=== PATIENT | male | born 1990 | race Caucasian/White ===

== ENCOUNTER 2024-06-21 09:41 | Inpatient (IN) | payer OTHER, SELFPAY ==
[2024-06-21] VITALS (28 sets, daily range): BP systolic 131–190; BP diastolic 70–144; PULSE 160; BMI 23.4
--- NOTE | 2024-06-21 06:17 | ED.GENMED ---
History of Present Illness
General
Chief Complaint: Withdrawal Symptoms
Source: patient, ambulance crew and other (Correction guards)
Exam Limitations: none
Time Seen by Provider: 06/21/24 06:06
Nursing documentation reviewed up to this point in time: agreed with
History of Present Illness
History of Present Illness:
34-year-old male presents emergency department due to fentanyl, xylazine withdrawal. He last used 2 days ago. He was given Subutex at the custodial,
Past History
Past History
ED Past Medical History: Other (IV drug abuse)
Social History
Drug: Narcotics and IVDA
Living: custodial (Recent arrival to [facility])
Family History
Family History: Unable to obtain
Review of Systems
Review of Systems
Allergies reviewed?: Yes
All Other Systems: Not applicable
ABD/GI: Reports vomiting
Phy Exam
Physical Exam
Physical Exam:
Physical Exam
General: Covered in vomit, appears uncomfortable, in handcuffs
Neck: supple. no meningeal signs. normal posterior pharynx
Heart: s1/s2 regular rate and rhythm, no murmur. equal radial
pulses.
HEENT: Pupils equal round reactive to light, EOMI
Lungs: no acute respiratory distress. clear bilaterally
Abdomen: normal bowel sounds. not tender. no CVAT
Neuro: alert and oriented. no focal neurological deficits cranial nerves II through XII intact
Skin: no rash
Psychiatric: well kept. interactive and cooperative
Extremities: no edema. no calf tenderness. negative homans. good distal pulses
Course
Orders/Labs/Results
Orders:
Orders
06/21/24 05:34
EKG [Electrocardiogram (*1)] Urgent
Reason for Study: Abnormal EKG
06/21/24 05:35
EKG- Treatment ONCE
06/21/24 Breakfast
Regular
06/21/24 06:14
0.9% Sodium Chloride 1000 ml [Nss] 1,000 ml IV BOLUS
Buprenorphine [Subutex] 16 mg SL STAT STA
Ondansetron Injectable [Zofran] 4 mg IV NOW STA
Tizanidine [Zanaflex] 4 mg PO NOW STA
06/21/24 06:15
IV Insert/Care/Rem.- Treatment PRN
06/21/24 06:20
Complete Blood Count/With Diff Urgent
Comprehensive Metabolic Panel Urgent
06/21/24 06:32
Lorazepam [Ativan] 1 mg IV NOW STA
06/21/24 07:01
Lorazepam [Ativan] 1 mg IV NOW STA
Metoclopramide [Reglan] 10 mg IV NOW STA
06/21/24 08:30
Lorazepam [Ativan] 1 mg IV NOW STA
06/21/24 09:03
Drug Screen, Urine [Urine Drug Abuse Screen] Routine
06/21/24 09:07
Piperacillin/Tazo 3.375 Gram [Zosyn] 3.375 gram in 50 ml IV NOW
06/21/24 09:17
Admit/Transfer Patient As Directed
Co-Sign Provider:
Level of Care: Inpatient admission
Assign to:: IMU- Intermediate Care
Physician / Group: Boston Irving
Diagnosis: Withdrawal and likely Sepsis
Reason for Hospitalization: Withdrawal and likely Sepsis
Expected length of stay greater than two midnights?: Yes
ELOS- Estimated Length of Stay in days: 4
I certify the patient meets the requirements for IP care: Yes
PRN Pain Medication Management As Directed
May give lesser potent ordered pain med per pt: Yes
preference::
Protocol:: Medication orders for pain may be administered in a
manner that supports deferring to patient preference
when the pt is:
- Requesting an ordered lesser potent pain medication.
Least to most potent pain medications are defined
as: acetaminophen < NSAID < tramadol < opioids
(morphine, oxycodone, hydromorphone).
- Requesting a lesser dose of the same medication IF
ORDERED.
- Requesting a less intrusive route of administration
if both routes are prescribed by the provider (PO <
IV).
06/21/24 09:19
Code Status As Directed
Resuscitation Status: Full Code
06/21/24 09:25
DIETARY CONSULT Routine
Reason for Consult: Nutrition support, possible refeeding guidelines
0.9% Sodium Chloride [Nss (Preservative Free)] See Protocol IV PRN PRN
FOLic ACID [Folvite] 1 mg 0.9% Sodium Chloride 50 ml [Nss] 50 ml IV DAILYPRN
Lorazepam [Ativan] 1 mg IV Q1HPRN PRN
Lorazepam [Ativan] 1 mg PO Q2HPRN PRN
Lorazepam [Ativan] 2 mg IV Q1HPRN PRN
MSAS SCORE As Directed
MSAS Score 0-4: Repeat MSAS every 2 hours until 0-4 for three consecutive assessments, then every 4 hours x 48
hours.
MSAS Score 5-7: For MILD withdrawl symptoms. Repeat MSAS and RASS every 2 hours
MSAS Score 8-11: For MODERATE withdrawal symptoms. Repeat MSAS and RASS every 1 hour. Consider ICU or IMU
level of care.
MSAS Score > 11: For SEVERE withdrawal symptoms. Repeat MSAS and RASS every 1 hour. Notify provider, consider
ICU level of care.
MSAS Additional Instructions: If no improvement or no decrease in score from severe to moderate within 12
hours, consult psychiatry
MSAS Notify Provider: Notify provider if patient requires more than 10 mg of Lorazepam in eight hour period.
MSAS SCORE As Directed
MSAS Score 0-4: Repeat MSAS every 2 hours until 0-4 for three consecutive assessments, then every 4 hours x 48
hours.
MSAS Score 5-7: For MILD withdrawl symptoms. Repeat MSAS and RASS every 2 hours
MSAS Score 8-11: For MODERATE withdrawal symptoms. Repeat MSAS and RASS every 1 hour. Consider ICU or IMU
level of care.
MSAS Score > 11: For SEVERE withdrawal symptoms. Repeat MSAS and RASS every 1 hour. Notify provider, consider
ICU level of care.
MSAS Additional Instructions: If no improvement or no decrease in score from severe to moderate within 12
hours, consult psychiatry
MSAS Notify Provider: Notify provider if patient requires more than 10 mg of Lorazepam in eight hour period.
06/21/24 09:26
Clinical Opioid Withdrawal Scale (COWS) .PRN
06/21/24 09:27
Buprenorphine [Subutex] 4 mg SL Q4HPRN PRN
Prochlorperazine [Compazine] 10 mg IV Q6HPRN PRN
Tizanidine [Zanaflex] 2 mg PO Q6HPRN PRN
06/21/24 09:37
Blood Culture Routine
ZABRINA Source: Blood/Venous
Specimen Description:
06/21/24 09:39
Urinalysis Reflex To Culture Routine
06/21/24 09:51
Phenobarbital Sodium [Phenobarbital] 260 mg 0.9% Sodium Chloride 100 ml [Nss] 100 ml IV NOW
06/21/24 10:29
Acetaminophen [Tylenol] 650 mg PO Q4HPRN PRN
Bisacodyl [Dulcolax] 10 mg RECTAL [id number] PRN
Docusate W/Senna [Senokot-S] 1 tablet PO BIDPRN PRN
Ketorolac [Toradol] 10 mg IV Q6HPRN PRN
Lactated Ringers [Lr] 1,000 ml IV 100 mls/hr
Pantoprazole [Protonix IV] 40 mg IV BID
Polyethylene Glycol Powder [Miralax] 17 grams PO DAILYPRN PRN
06/21/24 10:29
Activity As Directed
Activity Level: With Assistance
Precautions As Directed
Type of Precautions: Aspiration
Seizure
Other
Comment: Fall precautions
Vital Signs As Directed
Frequency: Per unit guidelines
DX Deep Vein Thrombosis Video Routine
06/21/24 11:00
Lactic Acid Routine
06/21/24 12:00
Clonidine [Catapres] 0.1 mg PO Q6
06/21/24 12:13
Blood Culture Urgent
ZABRINA Source: Blood/Venous
Specimen Description:
06/21/24 16:00
Phenobarbital Sodium [Phenobarbital] 97.5 mg IV TID
06/21/24 18:00
Enoxaparin Sodium [Lovenox] 40 mg SC QPM
06/21/24 20:00
Buprenorphine [Subutex] 16 mg SL BID
Thiamine Injection 200 mg IV Q12
06/22/24 06:00
Basic Metabolic Panel IN AM
Complete Blood Count/No Diff IN AM
Creatine Phosphokinase IN AM
Magnesium IN AM
Prothrombin Time IN AM
06/22/24 08:00
FOLic ACID [Folvite] 1 mg PO DAILY
06/23/24 06:00
Basic Metabolic Panel IN AM
Complete Blood Count/No Diff IN AM
Magnesium IN AM
06/23/24 16:00
Phenobarbital [Luminal] 64.8 mg PO TID
06/24/24 06:00
Basic Metabolic Panel IN AM
Complete Blood Count/No Diff IN AM
Magnesium IN AM
06/24/24 20:00
Thiamine HCl [Vitamin B1] 100 mg PO BID
06/25/24 06:00
Basic Metabolic Panel IN AM
Complete Blood Count/No Diff IN AM
Magnesium IN AM
06/25/24 16:00
Phenobarbital [Luminal] 32.4 mg PO TID
06/26/24 06:00
Basic Metabolic Panel IN AM
Complete Blood Count/No Diff IN AM
Magnesium IN AM
06/27/24 06:00
Basic Metabolic Panel IN AM
Complete Blood Count/No Diff IN AM
Magnesium IN AM
06/28/24 06:00
Basic Metabolic Panel IN AM
Complete Blood Count/No Diff IN AM
Magnesium IN AM
Abnormal Lab Results
06/21/24
06:20
WBC 19.5 H 10^3/uL
(4.8-10.8)
Plt Count 671 H 10^3/uL
(130-400)
Abs Immat Gran (auto) 0.1 H 10^3/uL
(0-0.05)
Absolute Neuts (auto) 17.9 H 10^3/uL
(1.4-6.5)
Absolute Lymphs (auto) 0.9 L 10^3/uL
(1.2-3.4)
Immature Gran % 0.6 H %
(0-0.5)
Neutrophils % 91.7 H %
(42.2-75.2)
Lymphocytes % 4.6 L %
(20.5-51.1)
Sodium 149 H mmol/L
(135-145)
Creatinine 0.6 L mg/dL
(0.7-1.3)
Glucose 187 H mg/dl
(70-99)
Calcium 11.1 H mg/dl
(8.4-10.2)
Total Protein 8.9 H g/dl
(6.3-8.2)
06/21/24 06:20
06/21/24 06:20
Vital Signs
Initial and Last Documented VS:
Initial Vital Signs
Temp Pulse Resp BP Pulse Ox
99 F 104 26 188/98 96
06/21/24 05:27 06/21/24 05:27 06/21/24 05:27 06/21/24 05:27 06/21/24 05:27
Last Documented Vital Signs
Temp Pulse Resp BP Pulse Ox
99 F 110 44 163/104 98
06/21/24 05:27 06/21/24 13:45 06/21/24 13:45 06/21/24 13:30 06/21/24 13:45
MDM/Problems Addressed
Differential Diagnosis Includes:
Ativan, fentanyl, xylazine withdrawal
MDM/Problems Addressed:
34-year-old male with vomiting, withdrawal from multiple substances. Admit to IMU. Multiple dose of Ativan, tizanidine given. Patient to Subutex.
*Pulse Oximetry
Patient hypoxic: no
*EKG
Interpreted by ED Provider?: Yes
EKG Intrepretation Date: 06/21/24
EKG Intrepretation Time: 05:42
Interpretation: normal
Comparison EKG: no changes
Heart Rate: 75
Rate: normal
Rhythm: sinus
[place]: normal axis
Interval: normal interval
QRS Pattern: normal QRS
Ischemia: no ischemia
*Food Critic Interpretation
Rate: normal
Interpretation: normal
Heart Rate: 76
Rhythm: sinus
*Critical Care Note
Total Time (30-74mins, 75-104mins- exclusive of procedures): 30
comment:
Critical care statement: A total of 30 minutes of critical care time was provided for this patient. This includes management of unstable vital signs, evaluation of the patient at bedside, reviewing the patient's pertinent medical records, discussion
with consultants, review of old EKGs and review of pertinent medical records. This time with separate from time utilized to perform the aforementioned documented procedures
Data Reviewed
Review of Other/Old Records Reveals: Labs (Prior WBC 12.2 from 05/02/2022)
Patient Management
Social determinants of health affecting care: Living situation
Discussion with other providers: Hospitalist
Escalation/DeEscalation of care consider admission/obs:
Admission indicated
ED Attending Note
-
Portions of this chart may have been created with voice recognition software.� Occasional wrong word or��sound alike� substitutions may have occurred due to the inherent limitations of voice recognition software.
Discharge Plan
Departure
Patient Disposition: Admit
Date of Disposition: 06/21/24
Time of Disposition: :19
Admit to: IMU
Presentation/result/management discussed w/ accepting MD/DO: Hospitalist
Patient with high blood pressure during this ER visit?: Yes
Condition: Fair
Discharge Problem:
Benzodiazepine withdrawal, Xylazine withdrawal, Opiate withdrawal, Acute hypernatremia
Interventions
Interventions:
*Risk Screen - Suicide Last Done: 06/21/24 05:27
*General Assessment Last Done: 06/21/24 05:27
*Neglect/Abuse Screening Last Done: 06/21/24 05:27
ED- Fall Risk Assessment Last Done: 06/21/24 10:43
*ED COVID-19 Vaccine History Last Done: 06/21/24 05:27
*Nursing Disposition Last Done: 06/21/24 10:43
ED- Neurological Assessment Last Done: 06/21/24 05:39
ED-Psychological Assessment Last Done: 06/21/24 05:39
Discharge Date and Time
Discharge Date/Time: 06/21/24 10:35
[2024-06-21] MEDS: NSS 1000 IV (06:23)
[2024-06-21] MEDS: ZOFRAN 4 MG IV (06:24)
[2024-06-21 06:29] LABS: % Basophils 0.2 % (0-2); % Immature Granulocytes 0.6 % (0-0.5); % Lymphocytes 4.6 % (20.5-51.1); % Monocytes 2.9 % (1.7-9.3); % Neutrophils 91.7 % (42.2-75.2); Absolute Immature Granulocytes 0.1 10^3/uL (0-0.05); Absolute Lymphocytes 0.9 10^3/uL (1.2-3.4); Absolute Monocytes 0.6 10^3/uL (0.1-0.6); Absolute Neutrophils 17.9 10^3/uL (1.4-6.5); Hematocrit 40.7 % (39.0-52.0); Hemoglobin 14.1 g/dL (13.0-18.0); Mean Corp Hgb Conc. 34.6 g/dL (33.0-37.0); Mean Corpuscular Hgb 27.9 pg (27.0-31.0); Mean Corpuscular Volume 80.4 fL (80.0-94.0); Mean Platelet Volume 10.3 fL (7.4-10.4); Nucleated Red Blood Cells % 0 % (-); Platelet Count 671 10^3/uL (130-400); Red Blood Cell Count 5.06 10^6/uL (4.70-6.10); Red Cell Dist. Width 12.4 % (11.5-14.5); White Blood Cell Count 19.5 10^3/uL (4.8-10.8)
[2024-06-21] MEDS: ZANAFLEX 4 MG PO (06:30)
[2024-06-21] MEDS: ATIVAN 1 MG IV ×4 (06:35→23:11)
[2024-06-21 06:46] LABS: AST (SGOT) 48 U/L (17-59); Albumin 4.9 g/dl (3.5-5.0); Alkaline Phosphatase 115 U/L (38-126); Blood Urea Nitrogen 13 mg/dl (9-20); Calcium 11.1 mg/dl (8.4-10.2); Carbon Dioxide 26 mmol/L (22-30); Chloride 102 mmol/L (98-107); Estimated Creatinine Clearance > 125 ml/min; Glucose 187 mg/dl (70-99); Potassium 3.8 mmol/L (3.5-5.1); Sodium 149 mmol/L (135-145); Total Bilirubin 0.5 mg/dl (0.2-1.3); Total Protein 8.9 g/dl (6.3-8.2); eGFR > 60.00
[2024-06-21 06:56] LABS: ALT (SGPT) 44 U/L (0-50)
[2024-06-21] MEDS: REGLAN 10 MG IV ×2 (07:05→13:55)
--- NOTE | 2024-06-21 07:24 | HPS.HSE ---
Addendum entered and electronically signed by Boston Irving MD 06/21/24 10:03:
start scheduled Clonidine with holding parameters for withdrawal symptoms
COWs protocol
subutex scheduled and prn
Original Note:
Family Physician
-
Family Physician: Facility [facility]
Chief Complaint
-
Withdrawal
History of Present Illness
34 male from correctional facility presents with withdrawal. History of polysubstance abuse IV drug use. Patient was hospitalized at this facility 2 years ago for overdose requiring intubation. Extubated patient was treated for withdrawal upper
GI bleed pneumonitis sepsis and MRSA bacteremia. Undergoing work up for possible endocarditis, patient was on precedex gtt when he decided to leave AMA overnight after nurse/staff found him smoking and taking his own unspecified pills from home.
Poor historian, patient reports IVDU with fentanyl and xylazine a few days ago, shooting into his left arm and neck. Tremulous, tachy, tachypneic, anxious reports nausea vomiting general malaise and pain. Though afebrile, tachycardia,
leukocytosis, and tachypnea concerning for sepsis especially in lieu of recent IV drug use and history.
Medical History
Past Medical History
Past Medical History: Reports Other (as above)
Past Surgical History: Reports Other (as above)
Social History
Tobacco: Smoker
Alcohol: Other (denies however treated for ETOH withdrawal in past)
Drug: Marijuana, IVDA and Other
Personal:
Living: Long-Term
Family History
Family History: Not pertinent (reviewed)
Allergies / Home Medications
Allergies reflects when Allergies were last updated in [facility].
Home Medications with original date entered in [facility]
Allergy/Medication List:
Allergies
Allergy/AdvReac Type Severity Reaction Status Date / Time
No Known Allergies Allergy Unverified 04/30/22 04:55
Home Medications
buprenorphine 8 mg-naloxone 2 mg sublingual film (Suboxone) 1 film buccal BID 05/02/22
gabapentin 800 mg tablet 800 mg PO TID 05/02/22
Review of Systems
-
A 12 point ROS was completed and negative except as noted: Yes
Constitutional: Reports Other
Physical Exam
Vital Signs
Vital Signs
Temp Pulse Resp BP Pulse Ox
99 F 117 45 188/98 95
06/21/24 05:27 06/21/24 07:00 06/21/24 07:00 06/21/24 05:32 06/21/24 06:00
Physical Exam
General: Other
Laboratory Results
-
06/21/24 06:20
06/21/24 06:20
Laboratory Results
Total Bilirubin 0.5 mg/dl (0.2-1.3) 06/21/24 06:20
AST 48 U/L (17-59) 06/21/24 06:20
ALT 44 U/L (0-50) 06/21/24 06:20
Alkaline Phosphatase 115 U/L (38-126) 06/21/24 06:20
Impression/Plan
-
ROS
General: reports fever chills night sweats
Neuro: Denies seizurloss of consciousness dizziness vertigo reports shaking tremors
Psych: denies depression hallucinations confusion manic episodes
Endocrine: Denies polyuria polydipsia polyphagia heat/cold intolerance
HEENT: Denies blindness visual disturbances epistaxis
Pulmonary: denies coughing hemoptysis sneezing sob dyspnea on exertion
Cardiovascular: denies chest pain palpitations leg swelling
Hematology: denies signs symptoms of anemia easy bruising/bleeding
Gastrointestinal: reports nausea vomiting denies diarrhea constipation hematemesis hematochezia melena
Genito-Urinary: denies retention incontinence dysuria
Musculoskeletal: denies joint pain weakness
Dermatology: Erythema LUE
Physical Exam
General: No pallor, cyanosis, or jaundice.
HEENT: Throat clear. PERRLA Normocephalic atraumatic
NECK: Supple. No JVD Carotid Bruits
RESPIRATORY: Lungs clear to auscultation. No crackles wheezes stridor
CVS: S1, S2 Tachy. No murmur, rub or gallop.
ABDOMEN: Soft, non-tender. No distension. BS+/normal.
EXTREMITIES: No peripheral cyanosis or edema.
CONTRACT ANALYST: awake alert conversant tremulous
Psych: anxious
IMPRESSION:
34 male from correctional facility presents with withdrawal. History of polysubstance abuse IV drug use. Patient was hospitalized at this facility 2 years ago for overdose requiring intubation. Extubated patient was treated for withdrawal upper
GI bleed pneumonitis sepsis and MRSA bacteremia. Undergoing work up for possible endocarditis, patient was on precedex gtt when he decided to leave AMA overnight after nurse/staff found him smoking and taking his own unspecified pills from home.
Poor historian, patient reports IVDU with fentanyl and xylazine a few days ago, shooting into his left arm and neck. Tremulous, tachy, tachypneic, anxious reports nausea vomiting general malaise and pain. Though afebrile, tachycardia,
leukocytosis, and tachypnea concerning for sepsis especially in lieu of recent IV drug use and history.
PLAN:
#Sedative/benzo Withdrawal
#denies ETOH use but treated for alcohol withdrawal in past
#IVDA
#Sepsis tachycardia Leukocytosis (BP stable Lactic acid pending)
#Hx MRSA Bacteremia
IMU admit
Surgical Territory Manager eval
Infectious Disease eval
blood cultures
empiric vanc zosyn
check CXR urinalysis urine drug screen lactic acide
phenobarbital taper
MSAS protocol
#Mild Hypercalcemia/Hypernatremia
likely dehydration
cont IVF support
dvt ppx Lovenox
gi ppx Protonix
Full Code
I spent a total of 80 minutes with the patient or on the floor. More than 50% of this time involved counseling and coordination of care.
[2024-06-21] MEDS: ZOSYN 50 IV ×3 (09:53→22:17)
[2024-06-21] MEDS: PHENOBARBITAL 104 MG IV (10:15)
[2024-06-21] MEDS: LR 1000 IV (10:50)
--- NOTE | 2024-06-21 10:58 | PHA.VAN.IN ---
Assessment
- Assessment
Renal Function: Appears similar to baseline
Historical Micro: History of MRSA infection
- Previous Dosing Experience
Previous Regimen: 1250mg q8h
Date of Regimen: 04/2022
Provided Trough of: 9
Provided AUC of: 327
Patient's SCR is: Similar to previous dosing experience
Patient's weight is: Decreased compared to previous dosing experience (82.7kg (now) vs 98.4kg (04/2022))
AUC Dosing Plan
- Dosing Variables
Dosing Weight (kg): 82.7
Dosing CrCl (ml/min): 100
Vd coefficient (L/kg): 0.7
- Empiric Dosing
Maintenance Regimen: 1000mg q8h
Estimated AUC (mcg*h/mL): 505
Estimated Peak (mcg*h/mL): 29.8
Estimated Trough (mcg/ml): 14
Estimated Half Life (H): 6.4
- Monitoring
No levels ordered at this time: consider after 6th dose
Pharmacokinetics Vancomycin I
- -
Patient Age: 34
Patient Sex: Male
Vancomycin Day #: 1
Indication: Skin And Soft Tissue
Requesting Provider: Dr. Irving
Pertinent Antimicrobial Allergies:
nkda
Height / Weight:
Height 6 ft 2 in
Actual Weight 82.7 kg
IBW in k.2
- Vital Signs / Lab Results
Temp Pulse Resp BP Pulse Ox
99 F 120 49 188/98 95
06/21/24 05:27 06/21/24 08:15 06/21/24 08:15 06/21/24 05:32 06/21/24 06:00
Lab Results - Hematology
06/21/24
06:20
WBC 19.5 H
Lab Results - Chemistry
06/21/24
06:20
BUN 13
Creatinine 0.6 L
Estimated Creat Clear > 125
Albumin 4.9
--- NOTE | 2024-06-21 11:09 | W.PN.UPDATE ---
Update Note
Progress Note Update
Called to IMU patient's bedside d/t high oxygen requirement on NRB saturating only 93% AMS unresponsive
Mental status since improved patient awake conversant reporting nausea
Remains very tachypneic low 90s saturation despite high oxygen and NRB
noted to have been vomiting earlier, likely aspirated
Checking ABG
diet switched to NPO except meds for now
continuing abx (received zosyn in ED so far, empiric Vanc also ordered)
transferring to ICU for closer monitoring concern patient may need intubation
discussed with patient, nurse, and [employer]
--- NOTE | 2024-06-21 11:13 | W.PN.UPDATE ---
Update Note
Progress Note Update
Went to see patient. 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 Poor IVv access due to Hx of IVDU with tranq. He also admits to using Klonopin, he says 3 a day. He
denies EtOH use. Care Home guards are present in room as well. Pt. is answering questions appropriately. Given his severe hypoxia with need for closer monitoring, will TRX to ICU. IV team at bedside to obtain more adequate IV access with midline.
Will give IM ativan in meantime to treat his anxiety/shaking/withdrawal symptoms. May need precedex gtt. Will also place onto high flow nasal cannula, titrating FiO2 and flow rate to keep SpO2 >90-94%. Will give anti-emetics prn, preferably with
reglan to help improve motility as well. Continue aspiration precautions, keep HOB >30-45 degrees. Low threshold to intubate. Full consult note to follow.
--- NOTE | 2024-06-21 11:15 | CON.INTV ---
Addendum entered and electronically signed by Gabo Kennedy MD 06/21/24 19:08:
Pt continues to be hypoxic. Concern for acute PE. He is unfortunately too unstable to bring down for CTPE. Will check echo and LE duplex in interim. Once BP and HR improve his sats improve from 88-90% to 97%, but on HFNC at 100% fio2. Will try
to get CTA chest tomorrow AM. IF sats persistently stay <90% despite controlled HR and BP, then will empirically start heparin gtt.
Original Note:
Consultation
Consultation Request
Date/Time Consultation Requested: 06/21/2024 - 1010
Date/Time Consultation Performed: 06/21/2024 - 1017
Requesting Provider: Dr. Irivng
Performing Provider: Dr. Kennedy
Reason for Consultation: SOB/Polysubstance Abuse with acute withdrawal
Medical History
-
Chief Complaint: Nausea/vomiting + tremors
History of Present Illness:
34-year-old male tobacco smoker with a past medical history of polysubstance abuse (IVDU with tranq, klonopin, THC), history of alcohol abuse with withdrawal, history of Staph aureus bacteremia (04/2022) complicated by endocarditis + septic
arthritis, and history of GI bleed who presents from [facility] with nausea/vomiting + tremors. Last use of IV drugs was 2 days ago. In the ER, patient was afebrile to 99 �F, tachycardic to 104, tachypneic to 26 breaths or minute,
hypertensive to 188/98 and saturating 96% on room air. Labs showed leukocytosis to 19.5, thrombocytosis to 671, hyponatremic to 149, glucose 187, lactate 4.7, + calcium 11.1. Blood cultures were collected, and patient treated in the ER with
Ativan, Zofran, tizanidine + IVF with 1L NS 0.99%. His oxygen requirements worsened and he became very tachypneic requiring up to 8 L/min via mid flow nasal cannula. He was admitted to the IMU under the hospitalist and hand shaker service
consulted given respiratory status. Given his continued tachypnea, tachycardia with possible need for Precedex with low threshold to intubate, he was transferred to the ICU.
Of note, he was previously hospitalized in April 2022 after being found unresponsive at [facility]. He was had bloody/biliary emesis. UDS was positive for cocaine + fentanyl. X-ray showed right-sided pneumonia at that time. He ended up
being intubated and was found to have MRSA bacteremia with ID consulted. TTE showed no evidence of endocarditis. He was extubated and then found to be smoking in his bathroom on 05/02/2022 and taking pills which was unidentified. He was
belligerent and then signed out AMA that night.
When I saw the patient he was awake, answering questions appropriately, tachypneic, tremulous, sweaty, with heart rate labile between 140�180. He was currently on nonrebreather when I saw him. Hypertensive with SBP in the 160�170s. He denies
chest pain, CURRY, abdominal pain,or fevers.
PMHx: IVDU (tranq), polysubstance abuse, tobacco use disorder, history of Staph aureus bacteremia (April 2022), reported history of meningitis, reported history of endocarditis + septic arthritis, chronic cough, history of GI bleed
PSHx: Non-contributory
Past Medical History
Past Medical History: Other (Above as per HPI)
Past Surgical History: Other (Above as per HPI)
Social History
Tobacco: Smoker
Alcohol: Other (Pt denies use but has been Tx for EtOH withdrawal in past)
Drug: Marijuana, IVDA and Other (Klonopin)
Living: Nursing Home
Family History
Family History: Reviewed & Not Pertinent
Allergies / Home Medications
Allergies
Allergy/AdvReac Type Severity Reaction Status Date / Time
No Known Allergies Allergy Unverified 04/30/22 04:55
Home Medications
�Medication �Instructions �Recorded �Confirmed �Last Taken �Type
buprenorphine 8 mg-naloxone 2 mg 1 film buccal BID 05/02/22 05/02/22 Unknown History
sublingual film (Suboxone)
gabapentin 800 mg tablet 800 mg PO TID 05/02/22 05/02/22 Unknown History
Review of Systems
-
Unable to Obtain full review of systems at this time due to: Acuity
Vitals / Labs / Diagnostic Testing
Vital Signs
Temp Pulse Resp BP Pulse Ox
99 F 120 49 188/98 95
06/21/24 05:27 06/21/24 08:15 06/21/24 08:15 06/21/24 05:32 06/21/24 06:00
Lab Data
06/21/24 06:20
06/21/24 06:20
Diagnostic Testing:
Physical Exam
-
HEENT: Normocephalic and Anicteric
Cardiovascular: S1/S2, Peripheral Edema (negative) and Other (tachycardic)
Respiratory: Wheeze (Above as per HPI), Rales (Above as per HPI), Rhonchi (Above as per HPI) and Accessory Resp Muscle Use
GI: Soft, Non Distended, Non Tender and Normal Bowel Sounds
Neurology: Awake, Tremors (Positive) and Other (answering questions appropriately)
Skin: Warm and Dry
General: Respiratory Distress (Positive), Chills and Sweats (Positive)
Assessment
-
Assessment: 34-year-old male tobacco smoker with a past medical history of polysubstance abuse (IVDU with tranq, klonopin, THC), history of alcohol abuse with withdrawal, history of Staph aureus bacteremia (04/2022) complicated by endocarditis +
septic arthritis, and history of GI bleed who presents from [facility] with nausea/vomiting + tremors. Last use of IV drugs was 2 days ago. In the ER, patient was afebrile to 99 �F, tachycardic to 104, tachypneic to 26 breaths or minute,
hypertensive to 188/98 and saturating 96% on room air. Labs showed leukocytosis to 19.5, thrombocytosis to 671, hyponatremic to 149, glucose 187, lactate 4.7, + calcium 11.1. Blood cultures were collected, and patient treated in the ER with
Ativan, Zofran, tizanidine + IVF with 1L NS 0.99%. His oxygen requirements worsened and he became very tachypneic requiring up to 8 L/min via mid flow nasal cannula. He was admitted to the IMU under the hospitalist and hand shaker service
consulted given respiratory status. Given his continued tachypnea, tachycardia with possible need for Precedex with low threshold to intubate, he was transferred to the ICU.
Chronic conditions [employer]: IVDU (tranq), polysubstance abuse, tobacco use disorder, history of Staph aureus bacteremia (April 2022), reported history of meningitis, reported history of endocarditis + septic arthritis, chronic cough, history of GI bleed
Impression:
#Nausea/vomiting/tremors likely due to drug withdrawal from heroin/xylazine (tranq) and possibly benzodiazepine withdrawal (patient admits to taking Klonopin - unclear exact dose he uses)
#Sinus tachycardia due to above
#Leukocytosis
#Respiratory alkalosis due to withdrawal
#Hypernatremia likely due to poor PO intake in the setting of vomiting
#Hyperglycemia
#Lactic acidosis
#Tobacco use disorder
Plan:
- Transition to high flow nasal cannula, keeping SpO2 >90-94%
- Low threshold to intubate especially if he becomes less responsive or more hypoxic
- Monitor hemodynamics with goal MAP >65
- Supportive care with antiemetics (QTc: 462ms via EKG from today), prn ativan, subutex, clonidine patch and prn zanaflex
- Continue phenobarbital protocol with MSAS
- Thiamine/folate
- Start precedex gtt, monitor for worsening mentation in which case stop gtt and notify provider immediately
- Nicotine patch
- Aspiration precautions keeping HOB >30-45�
- Strict NPO for now
- PPI given nausea/vomiting
- Given concern for aspiration bronchiolitis, continue with broad-spectrum antibiotics and follow-up blood culture (collected today)
- If patient remains afebrile by tomorrow with blood culture negative then we will narrow antibiotics at that time
- ID consulted - recs appreciated
- trend WBC and monitor fever curve
- Check MRSA swab (of note, he does have a Hx of positive MRSA screen from 04/2022)
- Check sputum Cx (if pt can produce a decent sample)
- Trend lactate until <2mmol/L
- Change LR to D5W given he is hypernatremic
- Trend sNa with goal 135-145
- Avoid over-correction with goal decrease in sNa of <8-10mmol/L in 24 hrs, and <16-18 mmol/L in 48 hrs
- Replete electrolytes with K>4, Mg>2
- Maintain euglycemia with goal BG 140-180; start moderate scale ISS
- prn nebulized bronchodilators - patient not currently bronchospastic
- DVT ppx: LMWH
Critical care statement: A total of 40 minutes of critical care time was provided for this patient today. This includes management of unstable vital signs, evaluation of the patient at bedside, reviewing the patient's pertinent medical records
including radiographs, microbiology, laboratory evaluations, and discussion with primary team, consultants, pharmacy, nutrition, physical therapy, case management, charge nurse, critical care nursing, and respiratory therapy.
Data:
CXR 06/21/2024: Subtle increased reticulonodular markings involving both lower lungs.
[2024-06-21] MEDS: NICODERM TRANSDERMAL 21 MG TRANSDERM (11:19)
[2024-06-21] MEDS: ATIVAN 2 MG IM (11:23)
[2024-06-21] MEDS: NSS (PRESERVATIVE FREE) 10 ML IV (11:27)
[2024-06-21] MEDS: PROTONIX IV 40 MG IV ×2 (11:28→19:57)
[2024-06-21] MEDS: COMPAZINE 10 MG IV (11:29)
[2024-06-21 11:39] LABS: Lactic Acid 4.7 mmol/L (0.7-2.0)
--- NOTE | 2024-06-21 11:42 | PTCARENOTE ---
Pt from ER hr 131 RR53 10 l O2 pox 88 BP 166/95, pt barely responsive at times. LARISA Iv infiltrated, VAT placed LUE mid line. Lactic drawn and sent. LARISA iv removed. DR Irving called and came to room pt for ICU. DR Hopkins saw pt avery for ICU .
Report to [facility] ICU. Pt shackled to bed on L ankle. 2 Guards present . LR hung at 100 hr. Ativan IM given before mid line placed. Lungs sound diminished. Pt continues to vomit brown emesis. Pt shaking uncontrollably. PT to room 7823.
[2024-06-21] MEDS: D5W 1000 IV (11:43)
[2024-06-21] MEDS: PRECEDEX 100 IV ×2 (11:46→19:08)
[2024-06-21] MEDS: ATIVAN 2 MG IV ×5 (11:49→21:10)
[2024-06-21] MEDS: TRANDATE 5 MG IV (12:00)
[2024-06-21 12:02] LABS: B.E. 5.1 mmol/L; HCO3 27.8 mmol/L (21-28); O2 Saturation % 95.3 % (94-98); PCO2 34 mmHg (35-48); PO2 69 mmHg (83-108); pH 7.52 (7.35-7.45)
[2024-06-21] MEDS: VANCOCIN 200 IV ×2 (12:23→22:17)
[2024-06-21] MEDS: NSS (PRESERVATIVE FREE) 1 ML IV ×2 (12:33→17:45)
--- NOTE | 2024-06-21 13:00 | PTCARENOTE ---
received pt from IMU 3345 at 1140 , pt severe tremors , diaphoretic , facial flushing , SVT-ST on monitor , 160-170 , BP 177/144 , rectal temp up to 102.1 , pt on HFNC with sat of 95% , 60L and 95% fio2, IV fluids started via midline , Precedex
started for withdraw, medicated with Lorazepam 2mg for MSAS 19 - 17 , pt seen and examined by Dr Smith , nausea and vomiting bile , frequent suctioning and oral care , pt is aware he is in hospital and is capable of answering one word answers ,
he is tachypneic and having difficulty to speak more than a few words, he had an ABG drawn 7.52/34/69/27.8 , blood cultures drawn prior to IV antibiotics , chart reviewed for history , pt is a corrections patient and guards are in room , voided
200ml or arrival to ICU
[2024-06-21] MEDS: OFIRMEV 100 IV (13:09)
--- NOTE | 2024-06-21 13:14 | CON.ID ---
Consultation
-
Date/Time Consultation Requested: 06/21/2024 1009
Date/Time Consultation Performed: 06/21/2024 1250
Requesting Provider: Dr. Irving
Performing Provider: Dr. Beebe
Reason for Consultation: Sepsis; Hx bacteremia
Chief Complaint / Past History
History of Present Illness
Keith Gaines is a 34-year-old man being evaluated at the request of Dr. Irving in regards to history of MRSA bacteremia. History is obtained from chart review and patient interview although patient was found to provide very little in the way of
history.
The patient and review of old records was hospitalized at [facility] in April 2022, at which time he had acute hypoxemic respiratory failure and was found to be in opioid withdrawal. At that time he had active IVDA and was found to have MRSA
bacteremia. 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 He was treated at [facility] with 6 weeks of antibiotics. During the 2021
hospitalization he was found to be taking illicit pills while in the hospital and he left AMA.
He presents back to the hospital now from [facility] secondary to withdrawal. At admission he was found to have a white count of 19.5 K, and a lactic acid of 4.7. Blood cultures are currently pending.
He reports he recently was hospitalized at [facility], although did not provide a reason for that hospitalization.
Past History
Additional Past Medical History:
IVDA
Additional Past Surgical History:
Left shoulder surgery
Allergy History:
No Known Allergies Allergy (Unverified 04/30/22 04:55)
Medications Reviewed: Yes
Current Antibiotics:
Vancomycin (dosing per pharmacy)
Zosyn 3.375 g IV every 6 hours
Social History
Tobacco: Non-Smoker
Alcohol: None
Drug: Narcotics and IVDA
Personal: Single
Living: Snf
Employment: Not Employed
Family History
Family History: Not Pertinent
Review of Systems
Vital Signs
Temp Pulse Resp BP Pulse Ox
99 F 180 49 151/129 94
06/21/24 05:27 06/21/24 12:00 06/21/24 08:15 06/21/24 12:00 06/21/24 11:53
Physical Exam
Physical Exam
Constitutional: Acutely Ill and Toxic
Head: Normocephalic
Eyes: Pupils Equal, Pupils Round, No Conjunctival Hemorrhage and Sclera Anicteric
Oral: No Thrush and No Ulcers
Cardiovascular: S1/S2; Negative S3/S4
Pulmonary: Coarse and Other (Moderately labored. High flow O2 in place.)
Gastrointestinal: Soft, Non Distended and Normal Bowel Sounds
Extremities: Negative Edema, Cyanosis, Erythema, Splinter Hemorrhage or Janeway Lesions
Skin: Other (Evidence of prior scar tissue on bilateral hands)
Neurological: Other (Somnolent but arousable.)
.
Lab / Diagnostic Study Results
06/21/24 06:20
06/21/24 06:20
Abs Immat Gran (auto) 0.1 10^3/uL (0-0.05) H 06/21/24 06:20
Absolute Neuts (auto) 17.9 10^3/uL (1.4-6.5) H 06/21/24 06:20
Absolute Lymphs (auto) 0.9 10^3/uL (1.2-3.4) L 06/21/24 06:20
Absolute Monos (auto) 0.6 10^3/uL (0.1-0.6) 06/21/24 06:20
Absolute Basos (auto) 0.0 10^3/uL (0-0.2) 06/21/24 06:20
Immature Gran % 0.6 % (0-0.5) H 06/21/24 06:20
Neutrophils % 91.7 % (42.2-75.2) H 06/21/24 06:20
Lymphocytes % 4.6 % (20.5-51.1) L 06/21/24 06:20
Monocytes % 2.9 % (1.7-9.3) 06/21/24 06:20
Eosinophils % 0.0 % (0-6) 06/21/24 06:20
Basophils % 0.2 % (0-2) 06/21/24 06:20
Lactic Acid 4.7 mmol/L (0.7-2.0) H* 06/21/24 11:00
Microbiology Results
Micro:
06/21/24 12:13 Blood Culture - Pending
Blood/Venous
Imaging:
06/21/2024 CXR (portable): Subtle increased reticulonodular markings over both lower lungs, and appear to be associated with peribronchial thickening. Findings suggest at least a component of bronchitis/bronchiolitis, and there could be a component
of mild small airway pneumonitis. No dense area of consolidation is identified. Cardiac silhouette size is within normal limits with no evidence for pulmonary edema. There is no significant pleural effusion. No cavitary lesions are seen within
the lungs. Please see full dictation for additional detail. Film personally viewed.
Assessment / Plan
Acute opiate withdrawal
Hypoxemic respiratory failure
Leukocytosis
Hyponatremia
Lactic acidosis
Hx IVDA
Hx MRSA bacteremia (2021)
Recommendations:
Continue with empiric Zosyn and Vanco. Follow Vanco levels closely.
Follow pending blood cultures
Trend lactate
Follow white count and temperature curve.
Will order records from [facility] regarding most recent admission
Continue O2 supplementation
Free water replacement for hypernatremia
Patient critically ill with respiratory failure and ICU
[2024-06-21] MEDS: CATAPRES-TTS-2 0.2 MG TRANSDERM (13:18)
[2024-06-21] MEDS: PHENOBARBITAL 97.5 MG IV ×2 (15:11→22:17)
[2024-06-21] MEDS: SUBUTEX 4 MG SL (15:14)
[2024-06-21 15:30] LABS: Lactic Acid 1.7 mmol/L (0.7-2.0)
[2024-06-21] MEDS: LOVENOX 40 MG SC (17:28)
[2024-06-21] MEDS: ZANAFLEX 2 MG PO (17:28)
[2024-06-21] MEDS: TRANDATE 10 MG IV (17:56)
[2024-06-21 18:04] LABS: Glucose - Point of Care 142 mg/dl (70-99)
--- NOTE | 2024-06-21 18:22 | PTCARENOTE ---
pt continues on HFNC 60 L and 100% , he has had some bouts of vomiting , he is very diaphoretic , facial flushing , he also is mouth breathing and occasional needs a NBRM to keep sat up , pt BP up to 190 and HR 130 , he was given 10mg of IV
Labetalol , Ofirmev given for temp 102.1 now down to 101.1 rectal , Precedex gtt , now up to 0.7mcg , pt sates he had used fentanyl on the 19 of June before he was in senior care , he usually uses 2-4 bags of fentanyl daily and tranq , pt repeat lact
level 1.7 , pt given IV Reglan for vomiting , SL Subutex given with COWs protocol
[2024-06-21] MEDS: THIAMINE INJECTION 200 MG IV (19:57)
[2024-06-21] MEDS: SUBUTEX 16 MG SL (19:57)
[2024-06-21 20:51] LABS: Urine Albumin Trace (Neg - Trace); Urine Bilirubin Negative (Negative); Urine Character Slightly Cloudy (Clear); Urine Color Yellow; Urine Glucose Negative (Negative); Urine Ketone Trace (Negative); Urine Leukocyte Negative (Negative); Urine Nitrite Negative (Negative); Urine Occult Blood 1+ (Negative); Urine Specific Gravity 1.015 (<1.030); Urine Urobilinogen Negative (Neg - 1+)
--- NOTE | 2024-06-21 20:55 | PTCARENOTE ---
Assumed care of pt at 1900. Received pt on Precedex at 0.7mcg/kg/min, currently on both COWS and MSAS protocol. Pt A/O x2-3 to person, place, loosely to time. Able to follow commands and has been cooperative with care. [facility] officers in room, pt
shackled to bed by left ankle currently. Pt with gross tremors throughout, diaphoretic, tachycardic on monitor 100s-130s, currently on HFNC at 75% and 60LPM with SpO2 97-99%, pt tachypneic with RR in high 20s to 40s at times. See nursing shift
assessment flowsheet for further physical assessment details. Urine sample sent to lab for UDS and UA/cx. Pt spilled most of the urine all over himself and the bed and full soap and water bath done and all linens changed. Pt to go to for CT scan of
chest this evening to r/o PE.
[2024-06-21 21:00] LABS: Urine White Cell 0-2 /HPF (0-5)
[2024-06-21 21:01] LABS: Benzodiazepines Positive (Negative); Cocaine Positive (Negative); Opiates Positive (Negative)
[2024-06-21 21:02] LABS: Amphetamines Negative (Negative); Barbiturates Positive (Negative); Buprenorphine Positive (Negative); Marijuana Negative (Negative); Methadone Negative (Negative); Methamphetamines Negative (Negative); Phencyclidine Negative (Negative); Tricyclic Antidepressants Negative (Negative)
[2024-06-21 21:20] LABS: Fentanyl, Urine Positive (Negative)
[2024-06-22] VITALS (24 sets, daily range): BP systolic 116–154; BP diastolic 60–105; BMI 22.8
[2024-06-22] MEDS: D5W 1000 IV (00:14)
[2024-06-22] MEDS: ZANAFLEX 2 MG PO ×4 (00:15→23:30)
[2024-06-22] MEDS: SUBUTEX 4 MG SL (00:16)
[2024-06-22 00:26] LABS: Glucose - Point of Care 125 mg/dl (70-99)
--- NOTE | 2024-06-22 00:26 | PTCARENOTE ---
Pt remains on Precedex infusion, has been getting PRN Ativan, Subutex, and Zanaflex based on withdrawal symptoms--MSAS and COWS assessments ongoing, see MSAS and COWS flowsheets and EMAR for med administration details. Pt tolerated CT scan well, CT
tech called with results, negative for PE but ground glass opacities present, ICU CROP CONSULTANT Ioana Dahl made aware. Pt remains on HFNC but FiO2 weaned down to 50% at this point, and pt maintaining SpO2 97%. Remains in ST low 100s on monitor, however when
he is more calm HR will go to 80s-90s, with activity will go up to 120s. Remains tachypneic in 30s-40s. Pt now afebrile. Lung sounds are coarse in the bases. Assessment otherwise unchanged. Pt has been using urinal or voiding in a basin
independently. Remains shackled by left ankle, 2 corrections officers in room.
[2024-06-22] MEDS: ATIVAN 2 MG IV ×2 (01:25→05:35)
[2024-06-22] MEDS: PRECEDEX 100 IV ×2 (01:32→07:13)
--- NOTE | 2024-06-22 01:37 | PTCARENOTE ---
Pt kept inadvertently removing HFNC, however SpO2 still remained in mid 90s and pt not in any increased respiratory distress. HFNC removed, pt placed on midflow NC that was in room from when he originally upgraded to ICU, currently on 6L midflow
with SPO2 96%. Respiratory therapist aware.
[2024-06-22] MEDS: ZOSYN 50 IV ×4 (04:14→21:51)
--- NOTE | 2024-06-22 04:20 | PTCARENOTE ---
Assessment unchanged. Pt on 6L midflow, SpO2 97%. HR will be SR 70s-80s up to ST low 100s. Remains on Precedex infusion, now at 0.9mcg/kg/min, pt was having more instances of attempting to get OOB for random things, like to 'go get cereal' or to
'get stuff to roll a cigarette'. MSAS and COWS ongoing. Corrections officers in room.
[2024-06-22 06:10] LABS: INR 1.24; PT 15.5 Sec (11.4-14.6)
[2024-06-22] MEDS: VANCOCIN 200 IV ×3 (06:11→21:51)
[2024-06-22 06:24] LABS: Hematocrit 32.3 % (39.0-52.0); Hemoglobin 11.6 g/dL (13.0-18.0); Mean Corp Hgb Conc. 35.9 g/dL (33.0-37.0); Mean Corpuscular Hgb 28.9 pg (27.0-31.0); Mean Corpuscular Volume 80.3 fL (80.0-94.0); Mean Platelet Volume 10.2 fL (7.4-10.4); Platelet Count 405 10^3/uL (130-400); Red Blood Cell Count 4.02 10^6/uL (4.70-6.10); Red Cell Dist. Width 12.4 % (11.5-14.5); White Blood Cell Count 16.5 10^3/uL (4.8-10.8)
[2024-06-22 06:30] LABS: Blood Urea Nitrogen 10 mg/dl (9-20); Calcium 9.6 mg/dl (8.4-10.2); Carbon Dioxide 23 mmol/L (22-30); Chloride 103 mmol/L (98-107); Creatine Phosphokinase 103 U/L (55-170); Estimated Creatinine Clearance > 125 ml/min; Glucose 126 mg/dl (70-99); Magnesium 1.7 mg/dl (1.6-2.3); Sodium 143 mmol/L (135-145); eGFR > 60.00
--- NOTE | 2024-06-22 07:20 | W.PN.HOSP.TC ---
Today's Communication/Plan
-
precedex as per ICU
phenobarb taper
MSAS protocol
COWS protocol
cont subutex clonidine patch
abx as per ID
follow cultures
Assessment / Plan
Assessment / Plan
Physical Exam
General: No pallor, cyanosis, or jaundice.
HEENT: Normocephalic atraumatic
NECK: Supple. No JVD Carotid Bruits
RESPIRATORY: Lungs clear to auscultation. No crackles wheezes stridor
CVS: S1, S2 Tachy. No murmur, rub or gallop.
ABDOMEN: Soft, non-tender. No distension. BS+/normal.
EXTREMITIES: No peripheral cyanosis or edema. Erythema upper ext's ostensible signs of prior IV drug use noted
MEASUREMENT SPECIALIST: Sedated lethargic arousable speaks minimally (one word answers)
IMPRESSION:
34 male from correctional facility presents with withdrawal. History of polysubstance abuse IV drug use. Patient was hospitalized at this facility 2 years ago for overdose requiring intubation. Extubated patient was treated for withdrawal upper
GI bleed pneumonitis sepsis and MRSA bacteremia. Undergoing work up for possible endocarditis, patient was on precedex gtt when he decided to leave AMA overnight after nurse/staff found him smoking and taking his own unspecified pills from home.
Poor historian, patient reports IVDU with fentanyl and xylazine a few days ago, shooting into his left arm and neck. Tremulous, tachy, tachypneic, anxious reports nausea vomiting general malaise and pain. Though afebrile, tachycardia,
leukocytosis, and tachypnea concerning for sepsis especially in lieu of recent IV drug use and history.
PLAN:
#Sedative/benzo Withdrawal
#denies ETOH use but treated for alcohol withdrawal in past
#IVDA
#Sepsis tachycardia Leukocytosis (BP stable Lactic acid pending)
#Hx MRSA Bacteremia
IMU admit transferred to ICU d/t AMS lethargy high oxygen requirement at increased risk need for intubation
Patient since improved
Alterations Manager eval appreciated
precedex gtt as per ICU
Infectious Disease eval appreciated cont empiric vanc zosyn
follow blood cultures
CXR appreciated possible bronchitis/bronchiolitis, possible component mild small airway pneumonitis
CT appreciated no PE, atelectasis noted (incentive spirometer ordered)
urinalysis negative for infection
Urine drug screen positive for opiates buprenorphine (received subutex prior to admission), fentanyl cocaine (reports using a few days ago), barbiturates and benzo given here for withdrawal
lactic acidosis resolved with IVF
phenobarbital taper
MSAS protocol
Subutex 16mg BID, clonidine patch, and COWS protocol
#Mild Hypercalcemia/Hypernatremia
likely dehydration
resolved with IVF support
dvt ppx Lovenox
gi ppx Protonix
Full Code
Total Critical Care Time__50___ minutes. I was immediately available to the patient and staff. I personally examined, reviewed labs, diagnostic images/reports, interpretations, treatment plans, discussed patient care with other providers and
patient, entered orders as appropriate and documented the medical record.
Anticipated Discharge: > 48 hours
Subjective/Interval History
-
Date of Service: June 22, 2024
lethargic but arousable. speaks minimally (1 one word answers yes or no).
Objective Data
-
Labs:
Laboratory Results
06/22/24
05:49
WBC 16.5 H
Hgb 11.6 L
Hct 32.3 L
Plt Count 405 H D
PT 15.5 H
INR 1.24
Sodium 143
Potassium 4.0
Chloride 103
Carbon Dioxide 23
BUN 10
Creatinine 0.7
Glucose 126 H
Calcium 9.6 D
Vital Signs:
Vital Signs
Temp Pulse Resp BP Pulse Ox
98.4 F 79 27 132/105 97
06/22/24 07:00 06/22/24 06:00 06/22/24 06:00 06/22/24 05:00 06/22/24 06:38
I&O
06/21/24 06/22/24 06/23/24
06:59 06:59 06:59
Intake Total 3118.4 / 3118.4
Output Total 425 / 425
Balance 2693.4 / 2693.4
--- NOTE | 2024-06-22 07:51 | PHA.VAN.FU ---
Vancomycin Assessment / Plan
- Assessment
Renal Function: Stable
WBC's are: Trending Down
In the past 24 hrs, patient has been: Febrile (102.1)
Concomitant Antimicrobials: ZOSYN
- Dosing Plan
Continue: 1000MG Q8H
- Monitoring Plan
Peak Level: 06/23 @0030
Trough Level: 06/23 @0530
- Follow Up
Pharmacy will continue to follow.
Vancomycin Follow UP
- -
Patient Age: 34
Patient Sex: Male
Vancomycin Day #: 2
Indication: Skin And Soft Tissue
Requesting Provider: Dr. Irving
Pertinent Antimicrobial Allergies:
nkda
Height / Weight:
Height 6 ft 2 in
Actual Weight 80.4 kg
IBW in k.2
- Vital Signs / Lab Results
Temp Pulse Resp BP Pulse Ox
98.4 F 79 27 132/105 97
06/22/24 07:00 06/22/24 06:00 06/22/24 06:00 06/22/24 05:00 06/22/24 07:38
Lab Results - Hematology
06/21/24 06/22/24
06:20 05:49
WBC 19.5 H 16.5 H
Lab Results - Chemistry
06/21/24 06/22/24
06:20 05:49
BUN 13 10
Creatinine 0.6 L 0.7
Estimated Creat Clear > 125 > 125
Albumin 4.9
06/21/24 06/21/24
11:00 15:02
Lactic Acid 4.7 H* 1.7
Lab Results - Urine
06/21/24
20:18
Urine Nitrite (Reflex) Negative
Leukocyte Esterase Rfl Negative
Ur Squamous Epith Cells 3-5
[2024-06-22] MEDS: SUBUTEX 16 MG SL ×2 (07:54→20:10)
[2024-06-22] MEDS: THIAMINE INJECTION 200 MG IV ×2 (07:55→20:10)
[2024-06-22] MEDS: NSS (PRESERVATIVE FREE) 10 ML IV (07:55)
[2024-06-22] MEDS: NICODERM TRANSDERMAL 21 MG TRANSDERM (07:55)
[2024-06-22] MEDS: PHENOBARBITAL 97.5 MG IV ×3 (07:55→21:51)
[2024-06-22] MEDS: FOLVITE 1 MG PO (07:55)
[2024-06-22] MEDS: PROTONIX IV 40 MG IV (07:55)
--- NOTE | 2024-06-22 08:56 | W.PN.ID1 ---
Date of Service
Date of Service: June 22, 2024
Today's Communication
Continue current antibiotics.
Assessment / Plan
Acute opiate withdrawal
Hypoxemic respiratory failure
- improved oxygenation
Leukocytosis
- improved
Hyponatremia
Lactic acidosis
Hx IVDA
Hx MRSA bacteremia (2021)
Recommendations:
Continue with empiric Zosyn and Vanco. Follow Vanco levels closely.
Follow pending blood cultures; currently no growth to date.
Lactate is normalized.
Follow white count and temperature curve.
Will order records from [facility] regarding most recent admission; still pending
Continue O2 supplementation
����������������������������������������������������������
Chief Complaint
-: Leukocytosis and Clinical Sepsis
Subjective / Review of Systems
Patient seen and examined. Fevers noted yesterday evening, but have improved overnight.
Vital Signs / Physical Exam
Vital Signs
Vital Signs
Temp Pulse Resp BP Pulse Ox
98.4 F 79 27 132/105 97
06/22/24 07:00 06/22/24 06:00 06/22/24 06:00 06/22/24 05:00 06/22/24 07:38
Physical Exam
Constitutional: No Acute Distress, Comfortable and Chronically Ill
Eyes: No Conjunctival Hemorrhage
Cardiovascular: Regular Rate and S1/S2
Pulmonary: Clear
Gastrointestinal: Soft, Non Tender, Non Distended and Normal Bowel Sounds
Extremities: Negative Edema or Splinter Hemorrhage
Wound: Other (trach mason with scabs on dorsum of feet and UE. )
Psychological: Calm
Objective Data
Lab Data
Lab Results
06/22/24 05:49
06/22/24 05:49
PT 15.5 Sec (11.4-14.6) H 06/22/24 05:49
INR 1.24 06/22/24 05:49
Estimated Creat Clear > 125 ml/min 06/22/24 05:49
Lactic Acid 1.7 mmol/L (0.7-2.0) 06/21/24 15:02
Total Bilirubin 0.5 mg/dl (0.2-1.3) 06/21/24 06:20
AST 48 U/L (17-59) 06/21/24 06:20
ALT 44 U/L (0-50) 06/21/24 06:20
Alkaline Phosphatase 115 U/L (38-126) 06/21/24 06:20
Most recent labs reviewed.
Micro Results:
06/21/24 15:02 MRSA Screen - Pending
Nose
06/21/24 15:02 Blood Culture - Pending
Blood/Venous
06/21/24 12:13 Blood Culture - Pending
Blood/Venous
Imaging:
06/21/2024 CXR (portable): Subtle increased reticulonodular markings over both lower lungs, and appear to be associated with peribronchial thickening. Findings suggest at least a component of bronchitis/bronchiolitis, and there could be a component
of mild small airway pneumonitis. No dense area of consolidation is identified. Cardiac silhouette size is within normal limits with no evidence for pulmonary edema. There is no significant pleural effusion. No cavitary lesions are seen within
the lungs. Please see full dictation for additional detail. Film personally viewed.
--- NOTE | 2024-06-22 09:00 | PTCARENOTE ---
pt drowsy , appropriate conversation at times , aware he is in hospital , garbled speech , NSR on monitor ,BP 137/90, weaning down nasal cannula , 2L sats 95% , weaning down on Precedex , MSAS 2, COWS 5, tolerating clear liquids , asking for diet
--- NOTE | 2024-06-22 09:07 | W.PN.INTV ---
Today's Communication / Plan
Recommendations
Up OOB as tolerated
Start regular diet
Precedex drip has successfully been stopped
Stop D5W given serum Na is now WNL
Abx
MSAS with prn ativan and phenobarbital protocol
Thiamine/folate
Patient has markedly improved - respiratory status stable on room air, breathing comfortably. Patient stable for transfer out of ICU to IMU. Pulmonary service will continue to briefly follow along.
Assessment
-
Assessment: 34-year-old male tobacco smoker with a past medical history of polysubstance abuse (IVDU with tranq, klonopin, THC), history of alcohol abuse with withdrawal, history of Staph aureus bacteremia (04/2022) complicated by endocarditis +
septic arthritis, and history of GI bleed who presents from [facility] with nausea/vomiting + tremors. Last use of IV drugs was 2 days ago. In the ER, patient was afebrile to 99 �F, tachycardic to 104, tachypneic to 26 breaths or minute,
hypertensive to 188/98 and saturating 96% on room air. Labs showed leukocytosis to 19.5, thrombocytosis to 671, hyponatremic to 149, glucose 187, lactate 4.7, + calcium 11.1. Blood cultures were collected, and patient treated in the ER with
Ativan, Zofran, tizanidine + IVF with 1L NS 0.99%. His oxygen requirements worsened and he became very tachypneic requiring up to 8 L/min via mid flow nasal cannula. He was admitted to the IMU under the hospitalist and assistant store manager sales service
consulted given respiratory status. Given his continued tachypnea, tachycardia with possible need for Precedex with low threshold to intubate, he was transferred to the ICU.
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
Impression:
#Nausea/vomiting/tremors due to drug withdrawal from heroin/xylazine (tranq) and possibly benzodiazepine withdrawal (patient admits to taking Klonopin - unclear exact dose he uses) - markedly improved
#Sinus tachycardia due to above - resolved
#Suspected alcohol withdrawal (although pt denies EtOH use, but he has a Hx of EtOH withdrawal and unclear if pt is an accurate historian)
#Leukocytosis
#Respiratory alkalosis due to withdrawal
#Hypernatremia likely due to poor PO intake in the setting of vomiting - Na now normalized s/p D5W
#Hyperglycemia - resolved
#Lactic acidosis - resolved
#Tobacco use disorder
Plan:
- Patient has markedly improved from a respiratory standpoint, and is now on room air breathing comfortably and saturating 97%
- Keep SpO2 >90-94%
- Monitor hemodynamics with goal MAP >65
- Supportive care with antiemetics (QTc: 462ms via EKG from today), prn ativan, subutex, clonidine patch and prn zanaflex
- Continue phenobarbital protocol with MSAS
- Thiamine/folate
- He has been successfully weaned off precedex gtt
- Nicotine patch
- Aspiration precautions keeping HOB >30-45�
- Ok for PO diet now that has markedly improved
- PPI given nausea/vomiting ---> unclear if he needs BID dosing --> will reduce to 40mg PO daily and then fully wean off after few more doses
- Given concern for aspiration bronchiolitis, continue with broad-spectrum antibiotics (Zosyn + IV vanco) and follow-up blood culture X 2 (collected 06/21/2024)
- If patient remains afebrile over next 48 hrs with blood cultures remaining negative, then narrow antibiotics at that time
- ID consulted - recs appreciated
- trend WBC and monitor fever curve
- Follow up MRSA swab (of note, he does have a Hx of positive MRSA screen from 04/2022) --> if MRSA negative then DC IV vanco
- Check sputum Cx (if pt can produce a decent sample)
- Given his severe hypoxia on 06/21/2024 with tachycardia, acute PE was suspected. CTPE was performed showing mild bilateral patchy groundglass opacities and no evidence of an acute PE. Lower extremity duplex also performed which was negative for
DVT. Echo is pending.
- Stop D5W given his sodium is now normal
- Trend sNa with goal 135-145
- Replete electrolytes with K>4, Mg>2
- Maintain euglycemia with goal BG 140-180; ok to stop ISS as BG now WNL
- prn nebulized bronchodilators - patient not currently bronchospastic
- DVT ppx: LMWH
Patient has markedly improved. He has successfully been weaned off of Precedex drip. Serum sodium also now WNL. Respiratory status stable on room air, breathing comfortably. Patient stable for transfer out of ICU to IMU. Pulmonary service will
continue to briefly follow along.
Total time spent today was 55 minutes for this encounter. Time includes reviewing laboratory test/imaging results, reviewing pertinent medical records, obtaining and reviewing medical history, performing an appropriate exam, ordering medications,
tests and procedures. Time also includes documentation of this encounter, coordinating patient care and communicating with other healthcare professionals. Total time does not include separately billed tests performed on this date of service.
Data:
CXR 06/21/2024: Subtle increased reticulonodular markings involving both lower lungs.
CTA Chest 06/21/2024: No evidence of central pulmonary embolism. Some minor bibasilar groundglass opacities, nonspecific as well some minor bibasilar subsegmental atelectasis.
LE Duplex 06/22/2024: No findings to confirm deep venous thrombosis the lower extremities bilaterally.
Subjective Dataa
Subjective Data
Date of Service:
Date of Service: June 22, 2024
Chief Complaint: Nurse'S Aides Teacher Follow Up
Subjective:
Seen and evaluated today at bedside. He says he feels much better today. Currently on room air breathing comfortably, saturating 97%, heart rate 74 and BP 134/100. He remains on D5W at 75 cc/hr. Febrile overnight with Tmax 101F. He currently
denies chest pain, CURRY, abdominal pain, nausea, fevers/chills. He is tremors/shakiness has almost fully resolved. He was weaned off of Precedex drip this morning. CTA chest performed last night which is negative for any acute PE and showed
bilateral patchy groundglass opacities.
Review of Systems
General: Other (Negative unless mentioned above)
Objective Data
Data Reviewed
Vital Signs / I&O / Oxygen:
Vital Signs
Temp Pulse Resp BP Pulse Ox
98.4 F 76 20 121/81 93
06/22/24 07:00 06/22/24 10:00 06/22/24 10:00 06/22/24 10:00 06/22/24 10:36
Intake and Output
06/21/24 06/22/24 06/23/24
06:59 06:59 06:59
Intake Total 3118.4 / 3211.6 660.8 / 660.8
Output Total 425 / 425 300 / 300
Balance 2693.4 / 2786.6 360.8 / 360.8
SaO2 93
Nasal Cannula flow liters per 2
minute
Physical Exam
General: Respiratory Distress (negative), Comfortable, Chills (negative) and Sweats (negative)
HEENT: Normocephalic and Anicteric
Cardiovascular: S1-S2 and Peripheral Edema (negative)
Respiratory: Clear, Wheeze (negative), Crackles (negative), Rhonchi (negative), Non-Labored Respirations and Other (Diminished breath sounds bilaterally)
GI: Soft, Non Distended, Non Tender and Normal Bowel Sounds
Neurology: Tremors (negative) and Lethargic (Easily arousable, answering questions appropriately)
Skin: Warm, Dry, Cyanosis (negative), Jaundice (negative) and Rash
Labs/Micro/Reports
Lab Data
06/22/24 05:49
06/22/24 05:49
Laboratory Results
06/21/24 06/22/24
11:45 05:49
PT 15.5 H
INR 1.24
pH 7.52 H
pCO2 34 L
pO2 69 L
HCO3 27.8
O2 Delivery Level
[2024-06-22 12:27] LABS: Glucose - Point of Care 112 mg/dl (70-99)
--- NOTE | 2024-06-22 12:45 | PTCARENOTE ---
pt now off of Precedex , fair appetite , drowsy , cooperative
--- NOTE | 2024-06-22 14:26 | CM ---
Patient seen at bedside in ICU. Residential guards at bedside. CM called to [facility] [phone]. update provided to nurse. Please call to [facility] when patient medically stable and ready for return to snf. CM will continue to follow for discharge
planning needs.
Plan; [facility]; call [facility]
[2024-06-22] MEDS: TORADOL 10 MG IV (14:55)
[2024-06-22] MEDS: MAGNESIUM OXIDE 500 MG PO (14:56)
--- NOTE | 2024-06-22 15:25 | PTCARENOTE ---
pt now IMU level of care
[2024-06-22] MEDS: LOVENOX 40 MG SC (17:05)
[2024-06-22] MEDS: ATIVAN 1 MG PO (20:11)
--- NOTE | 2024-06-22 20:54 | PTCARENOTE ---
Assumed care of pt at 1900. Pt is A/O x4, pleasant and cooperative with care although is a bit restless and has repetitive requests. COWS score 12, MSAS 6, medicated with scheduled Subutex and PRN Ativan per MSAS protocol. Physical assessment
completed, see nursing shift assessment flowsheet for full details. SR 60s-80s on monitor, SpO2 96-97% on RA. Pt shackled to bed, 2 corrections officers in room. Pt currently IMU level of care.
[2024-06-23] VITALS (11 sets, daily range): BP systolic 119–157; BP diastolic 65–118; BMI 23.1
[2024-06-23] MEDS: ATIVAN 1 MG PO (00:49)
[2024-06-23] MEDS: ATIVAN 2 MG IV (02:55)
[2024-06-23] MEDS: ZOSYN 50 IV ×2 (04:12→09:47)
[2024-06-23 04:20] LABS: Hematocrit 35.2 % (39.0-52.0); Hemoglobin 12.3 g/dL (13.0-18.0); Mean Corp Hgb Conc. 34.9 g/dL (33.0-37.0); Mean Corpuscular Hgb 29.2 pg (27.0-31.0); Mean Corpuscular Volume 83.6 fL (80.0-94.0); Platelet Count 407 10^3/uL (130-400); Red Blood Cell Count 4.21 10^6/uL (4.70-6.10); Red Cell Dist. Width 12.4 % (11.5-14.5); White Blood Cell Count 16.2 10^3/uL (4.8-10.8)
[2024-06-23 04:44] LABS: Blood Urea Nitrogen 10 mg/dl (9-20); Calcium 9.6 mg/dl (8.4-10.2); Carbon Dioxide 26 mmol/L (22-30); Chloride 103 mmol/L (98-107); Estimated Creatinine Clearance > 125 ml/min; Glucose 102 mg/dl (70-99); Magnesium 1.9 mg/dl (1.6-2.3); Phosphorus 4.2 mg/dl (2.5-4.5); Potassium 3.8 mmol/L (3.5-5.1); Sodium 142 mmol/L (135-145); eGFR > 60.00
[2024-06-23] MEDS: VANCOCIN 200 IV (06:18)
[2024-06-23] MEDS: IMODIUM 2 MG PO (06:18)
[2024-06-23] MEDS: ATIVAN 1 MG IV (06:18)
[2024-06-23] MEDS: FOLVITE 1 MG PO (07:58)
[2024-06-23] MEDS: NICODERM TRANSDERMAL 21 MG TRANSDERM (07:58)
[2024-06-23] MEDS: SUBUTEX 16 MG SL (07:59)
[2024-06-23] MEDS: PHENOBARBITAL 97.5 MG IV (07:59)
[2024-06-23] MEDS: THIAMINE INJECTION 200 MG IV (07:59)
[2024-06-23] MEDS: PROTONIX 40 MG PO (07:59)
--- NOTE | 2024-06-23 08:00 | PTCARENOTE ---
Received pt. @ change of shift, oriented x3, forgetful/impulsive. Forensic pt; BCC guards x2 @ bedside and pt. remains shackled in bed. COWS 9; MSAS 2- see flow sheets. SR on monitor. SpO2 96% on RA. Afebrile. +BS, and soft/nt; nausea @ x's, no
vomiting. Loose stools overnight; voids in urinal. L midline in place, patent and dressing c/d/i. Instructed on how to report care concerns, call cesar w in reach.
--- NOTE | 2024-06-23 08:16 | W.PN.PUL3 ---
Today's Communication / Plan
-
Up OOB as tolerated
Regular diet
Abx per ID
Stop MSAS and DC phenobarbital protocol; continue prn ativan for anxiety
Thiamine/folate
Reasonable to complete a 5-day course of doxycycline for upper extremity nonpurulent cellulitis
Pulmonary service will now sign off. Please reconsult if there are any additional questions/concerns, or if patient's respiratory status deteriorates.
Assessment
-
Assessment: 34-year-old male tobacco smoker with a past medical history of polysubstance abuse (IVDU with tranq, klonopin, THC), history of alcohol abuse with withdrawal, history of Staph aureus bacteremia (04/2022) complicated by endocarditis +
septic arthritis, and history of GI bleed who presents from [facility] with nausea/vomiting + tremors. Last use of IV drugs was 2 days ago. In the ER, patient was afebrile to 99 �F, tachycardic to 104, tachypneic to 26 breaths or minute,
hypertensive to 188/98 and saturating 96% on room air. Labs showed leukocytosis to 19.5, thrombocytosis to 671, hyponatremic to 149, glucose 187, lactate 4.7, + calcium 11.1. Blood cultures were collected, and patient treated in the ER with
Ativan, Zofran, tizanidine + IVF with 1L NS 0.99%. His oxygen requirements worsened and he became very tachypneic requiring up to 8 L/min via mid flow nasal cannula. He was admitted to the IMU under the hospitalist and quality assurance supervisor trim service
consulted given respiratory status. Given his continued tachypnea, tachycardia with possible need for Precedex with low threshold to intubate, he was transferred to the ICU.
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
Impression:
#Nausea/vomiting/tremors due to drug withdrawal from heroin/xylazine (tranq) and possibly benzodiazepine withdrawal (patient admits to taking Klonopin - unclear exact dose he uses) - resolved
#Sinus tachycardia due to above - resolved
#Suspected alcohol withdrawal (although pt denies EtOH use, but he has a Hx of EtOH withdrawal and unclear if pt is an accurate historian) - he is no longer at risk of EtOH or benzo withdrawal - he confirmed today that he does not drink alcohol
daily, and his last benzo was taken >5-6 days ago
#Leukocytosis
#Nonpurulent cellulitis on upper extremities from recent IVDU
#Respiratory alkalosis due to withdrawal
#Hypernatremia likely due to poor PO intake in the setting of vomiting - Na now normalized s/p D5W
#Hyperglycemia - resolved
#Lactic acidosis - resolved
#Tobacco use disorder
Plan:
- Patient has markedly improved from a respiratory standpoint, and is now on room air breathing comfortably and saturating 97-99%
- Keep SpO2 >90-94%
- Goal MAP >65
- Supportive care with antiemetics (QTc: 462ms via EKG from 06/21/2024), prn ativan, subutex, clonidine patch and prn zanaflex
- Echo performed today shows hyperdynamic LV with EF 70-75%, normal RV size/function. Trace TR. No significant change compared to prior echo in April 2022
- Stop phenobarbital protocol as he is no longer at risk of benzo withdrawal and he does not drink EtOH; no current Sx of EtOH -WD; ok to stop MSAS
- Thiamine/folate
- He has been successfully weaned off precedex gtt for > 24 hrs now
- Nicotine patch
- Aspiration precautions keeping HOB >30-45�
- PPI given nausea/vomiting ---> unclear if he needs BID dosing --> reduced to 40mg PO daily and will fully wean off after few more doses
- Given concern for aspiration bronchiolitis, he was given broad-spectrum antibiotics with Zosyn + IV vanco; ID consulted - recs appreciated; IV ABx now stopped
- He does have erythematous forearms from IV drug use, and it is reasonable to finish a 5-day course of doxycycline to cover for nonpurulent cellulitis
- Follow-up blood culture x 2 (collected 06/21/2024)
- trend WBC and monitor fever curve
- MRSA swab negative (of note, he does have a Hx of positive MRSA screen from 04/2022)
- Check sputum Cx (if pt can produce a decent sample)
- Given his severe hypoxia on 06/21/2024 with tachycardia, acute PE was suspected. CTPE was performed showing mild bilateral patchy groundglass opacities and no evidence of an acute PE. Lower extremity duplex also performed which was negative for
DVT. Echo shows normal RV size/function with hyperdynamic LV.
- He is no longer hypoxic
- Trend sNa with goal 135-145
- Given his history of polysubstance abuse with suspected depression, start buspar 10mg BID; this should be continued as an outpatient and he should follow up with his PCP regarding his polysubstance abuse
- Replete electrolytes with K>4, Mg>2
- Maintain euglycemia with goal BG >100 and <180
- prn nebulized bronchodilators - patient not currently bronchospastic
- DVT ppx: LMWH
Patient remains stable and has done remarkably well over the last 24-48 hours. He is stable for discharge back to residential; resume his Subutex, and advised to follow-up with PCP for continued drug management. He says he has about 6-12 months left in
his residential sentence. He is motivated to stop using drugs. All questions were answered.
Pulmonary service will now sign off. Thank you for allowing us to be involved in the care of this patient. Please reconsult if there are any additional questions/concerns, or if patient's respiratory status deteriorates.
Total time spent today was 35 minutes for this encounter. Time includes reviewing laboratory test/imaging results, reviewing pertinent medical records, obtaining and reviewing medical history, performing an appropriate exam, ordering medications,
tests and procedures. Time also includes documentation of this encounter, coordinating patient care and communicating with other healthcare professionals. Total time does not include separately billed tests performed on this date of service.
Data:
CXR 06/21/2024: Subtle increased reticulonodular markings involving both lower lungs.
CTA Chest 06/21/2024: No evidence of central pulmonary embolism. Some minor bibasilar groundglass opacities, nonspecific as well some minor bibasilar subsegmental atelectasis.
LE Duplex 06/22/2024: No findings to confirm deep venous thrombosis the lower extremities bilaterally.
TTE 06/23/2024:
Hyperdynamic left ventricular systolic function. LV ejection fraction is 70-75%.
Normal right ventricular size. Normal right ventricular systolic function.
Trace tricuspid regurgitation. Normal PASP.
Compared to 05/01/22: no significant change.
Subjective Data
-
Date of Service:
Date of Service: June 23, 2024
Chief Complaint: Pulmonary Follow Up
Subjective:
Seen and evaluated today at bedside. He looks much better, and he also feels almost fully back to himself. He has much more energy, he is not short of breath or tremulous. MSAS this AM is 2, COWS score this AM is 9. He is currently on room air
saturating 98%, BP 147/90, heart rate 85 and he is afebrile.
Review of Systems
General: Other (Negative unless mentioned above)
Objective Data
Data Reviewed
Vital Signs / I&O / Oxygen:
Vital Signs
Temp Pulse Resp BP Pulse Ox
98.6 F 91 21 147/92 96
06/23/24 07:58 06/22/24 20:00 06/22/24 20:00 06/22/24 20:00 06/22/24 20:46
Intake and Output
06/22/24 06/23/24 06/24/24
06:59 06:59 06:59
Intake Total 3118.4 / 3211.6 2343.0 / 2343.0
Output Total 425 / 425 1225 / 1225
Balance 2693.4 / 2786.6 1118.0 / 1118.0
SaO2 96
Nasal Cannula flow liters per 2
minute
Physical Exam
General: Respiratory Distress (negative), Comfortable, Chills (negative) and Sweats (negative)
HEENT: Normocephalic and Anicteric
Cardiovascular: S1-S2 and Peripheral Edema (negative)
Respiratory: Clear, Wheeze (negative), Crackles (negative) and Rhonchi (negative)
GI: Soft, Non Distended, Non Tender and Normal Bowel Sounds
Neurology: AO x 3 and Tremors (negative)
Skin: Warm, Dry and Other (Scars from IV drug use on hands + forearms; no purulence or exsanguination seen)
Labs/Micro/Reports
Lab Data
06/23/24 04:02
06/23/24 04:02
Microbiology
06/21/24 15:02 Nose MRSA Screen - Final
No Methicillin Resistant Staphylococcus aureus isolated.
06/21/24 15:02 Blood/Venous Blood Culture - Preliminary
No Growth in 24 hours- Final report to follow
06/21/24 12:13 Blood/Venous Blood Culture - Preliminary
No Growth in 24 hours- Final report to follow
--- NOTE | 2024-06-23 10:53 | PHA.VAN.FU ---
Vancomycin Assessment / Plan
- Assessment
Renal Function: SCR Increasing (0.6-->0.7-->0.9)
WBC's are: Stable
In the past 24 hrs, patient has been: Afebrile
Concomitant Antimicrobials: piperacillin/tazobactam
- Assessment - Trough Based Monitoring
Trough Value: 17
Level Comments: drawn ~8H after 4th maintenance dose
Peak not drawn - unable to calculate patient-specific pk, including half-life
Trough on higher end of goal range and expect would continue to accumulate with further dosing at Q8H interval
- Dosing Plan
Adjust Regimen to: dosing by level
Dosing Comments: received 1000mg at 06:18 give additional 1250mg x1 at 1800
Will tentatively adjust to dosing by level as SCR has slight increasing trend and level at higher end of goal range
- Monitoring Plan
Random Level: 06/24 0600
- Follow Up
Pharmacy will continue to follow.
Vancomycin Follow UP
- -
Patient Age: 34
Patient Sex: Male
Vancomycin Day #: 3
Indication: Skin And Soft Tissue
Requesting Provider: Dr. Irving / [place]
Pertinent Antimicrobial Allergies:
NKDA
Height / Weight:
Height 6 ft 2 in
Actual Weight 81.4 kg
IBW in k.2
- Vital Signs / Lab Results
Temp Pulse Resp BP Pulse Ox
98.6 F 97 21 121/79 96
06/23/24 07:58 06/23/24 09:00 06/23/24 09:00 06/23/24 09:00 06/23/24 09:33
Lab Results - Hematology
06/21/24 06/22/24 06/23/24
06:20 05:49 04:02
WBC 19.5 H 16.5 H 16.2 H
Lab Results - Chemistry
06/21/24 06/22/24 06/23/24
06:20 05:49 04:02
BUN 13 10 10
Creatinine 0.6 L 0.7 0.9
Estimated Creat Clear > 125 > 125 > 125
Albumin 4.9
06/21/24 06/21/24
11:00 15:02
Lactic Acid 4.7 H* 1.7
Microbiology Results
06/21/24 15:02 MRSA Screen - Final
Nose No Methicillin Resistant Staphylococcus aureus isolated.
06/21/24 15:02 Blood Culture - Preliminary
Blood/Venous No Growth in 24 hours- Final report to follow
06/21/24 12:13 Blood Culture - Preliminary
Blood/Venous No Growth in 24 hours- Final report to follow
Therapeutic Drug Monitoring
Vancomycin Trough 17.0 ug/ml (5-20) 06/23/24 05:57
--- NOTE | 2024-06-23 11:07 | W.PN.ID1 ---
Date of Service
Date of Service: June 23, 2024
Today's Communication
Discontinue antibiotics.
Assessment / Plan
Acute opiate withdrawal
Hypoxemic respiratory failure
- Improved/resolved.
Leukocytosis
- improved
Hyponatremia
Lactic acidosis
Hx IVDA
Hx MRSA bacteremia (2021)
Recommendations:
At present, no infectious process immediately identifiable.
Suspect ongoing leukocytosis reactive secondary to withdrawal.
Discontinue further antibiotics.
Records from [facility] not available (requested but never sent.)
Check routine HIV screen. Patient has given verbal consent.
����������������������������������������������������������
Chief Complaint
-: Leukocytosis and Clinical Sepsis
Subjective / Review of Systems
Review of Systems: No Fever and No Chills
Vital Signs / Physical Exam
Vital Signs
Vital Signs
Temp Pulse Resp BP Pulse Ox
98.6 F 97 21 121/79 96
06/23/24 07:58 06/23/24 09:00 06/23/24 09:00 06/23/24 09:00 06/23/24 09:33
Physical Exam
Constitutional: No Acute Distress, Comfortable and Chronically Ill
Eyes: No Conjunctival Hemorrhage
Cardiovascular: Regular Rate and S1/S2
Pulmonary: Clear
Gastrointestinal: Soft, Non Tender, Non Distended and Normal Bowel Sounds
Extremities: Negative Edema or Splinter Hemorrhage
Wound: Other (trach mason with scabs on dorsum of feet and UE. )
Psychological: Calm
Objective Data
Lab Data
Lab Results
06/23/24 04:02
06/23/24 04:02
PT 15.5 Sec (11.4-14.6) H 06/22/24 05:49
INR 1.24 06/22/24 05:49
Estimated Creat Clear > 125 ml/min 06/23/24 04:02
Lactic Acid 1.7 mmol/L (0.7-2.0) 06/21/24 15:02
Total Bilirubin 0.5 mg/dl (0.2-1.3) 06/21/24 06:20
AST 48 U/L (17-59) 06/21/24 06:20
ALT 44 U/L (0-50) 06/21/24 06:20
Alkaline Phosphatase 115 U/L (38-126) 06/21/24 06:20
Most recent labs reviewed.
Micro Results:
06/21/24 15:02 MRSA Screen - Final
Nose No Methicillin Resistant Staphylococcus aureus isolated.
06/21/24 15:02 Blood Culture - Preliminary
Blood/Venous No Growth in 24 hours- Final report to follow
06/21/24 12:13 Blood Culture - Preliminary
Blood/Venous No Growth in 24 hours- Final report to follow
Imaging:
06/21/2024 CXR (portable): Subtle increased reticulonodular markings over both lower lungs, and appear to be associated with peribronchial thickening. Findings suggest at least a component of bronchitis/bronchiolitis, and there could be a component
of mild small airway pneumonitis. No dense area of consolidation is identified. Cardiac silhouette size is within normal limits with no evidence for pulmonary edema. There is no significant pleural effusion. No cavitary lesions are seen within
the lungs. Please see full dictation for additional detail. Film personally viewed.
Care Review
Plan reviewed with: Physician (Critical Care)
--- NOTE | 2024-06-23 11:10 | CM ---
CM following re: discharge planning.
Reviewed pt's chart, met with pt and two security guards at bedside.
Pt is admitted from [facility] and a per guards, pt will return back to [facility] when medically stable.
[facility] nursing report: [phone]
Discharge instructions fax: [phone]
D/C plan: return back to [facility] when medically stable.
CM will follow with discharge plan updates as hospitalization progresses
[2024-06-23] MEDS: BUSPAR 10 MG PO (11:52)
[2024-06-23] MEDS: ATIVAN 0.5 MG PO (11:52)
--- NOTE | 2024-06-23 12:41 | W.PN.HOSP.TC ---
Addendum entered and electronically signed by Bennett Santana MD 06/25/24 15:37:
Acute hypoxic respiratory failure, resolved
Original Note:
Today's Communication/Plan
-
dc to [facility]
DC antibiotics
Start BuSpar
Assessment / Plan
Assessment / Plan
Physical Exam
General: No pallor, cyanosis, or jaundice.
HEENT: Normocephalic atraumatic
NECK: Supple. No JVD Carotid Bruits
RESPIRATORY: Lungs clear to auscultation. No crackles wheezes stridor
CVS: S1, S2 Tachy. No murmur, rub or gallop.
ABDOMEN: Soft, non-tender. No distension. BS+/normal.
EXTREMITIES: No peripheral cyanosis or edema. Erythema upper ext's ostensible signs of prior IV drug use noted
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
IMPRESSION:
34 male from correction[facility] facility presents with withdrawal. History of polysubstance abuse IV drug use. Patient was hospitalized at this facility 2 years ago for overdose requiring intubation. Extubated patient was treated for withdrawal upper
GI bleed pneumonitis sepsis and MRSA bacteremia. Undergoing work up for possible endocarditis, patient was on precedex gtt when he decided to leave AMA overnight after nurse/staff found him smoking and taking his own unspecified pills from home.
Poor historian, patient reports IVDU with fentanyl and xylazine a few days ago, shooting into his left arm and neck. Tremulous, tachy, tachypneic, anxious reports nausea vomiting general malaise and pain. Though afebrile, tachycardia,
leukocytosis, and tachypnea concerning for sepsis especially in lieu of recent IV drug use and history.
PLAN:
#Sedative/benzo Withdrawal
#denies ETOH use but treated for alcohol withdrawal in past
#IVDA
#Hx MRSA Bacteremia
# Sinus tachycardia secondary to withdrawal
# Leukocytosis likely reactive
IMU admit transferred to ICU d/t AMS lethargy high oxygen requirement at increased risk need for intubation and stable on room air.
Patient since improved
Recreation Aide eval appreciated
Infectious Disease eval appreciated DC vanc zosyn
follow blood cultures-negative so far
CXR appreciated possible bronchitis/bronchiolitis, possible component mild small airway pneumonitis
CT appreciated no PE, atelectasis noted (incentive spirometer ordered)
urinalysis negative for infection
Urine drug screen positive for opiates buprenorphine (received subutex prior to admission), fentanyl cocaine (reports using a few days ago), barbiturates and benzo given here for withdrawal
lactic acidosis resolved with IVF
phenobarbital taper DCed.
MSAS protocol-DCed
Subutex 16mg daily his home dose restarted
DC cows/msas protocol
started on Buspar 10mg BID for anxiety
#Mild Hypercalcemia/Hypernatremia
likely dehydration
resolved with IVF support
dvt ppx Lovenox
gi ppx Protonix
Full Code
d/w with hospital product specialist
d/w with Rn and pharmacist
More than 30 minutes spent in discharge including
Final examination of the patient
Summarizing hospital stay
Instructions for continuing care to all relevant caregivers
Preparation of discharge records, prescriptions, and referral forms
Total time spent (in minutes): 60
Anticipated Discharge: Today
Subjective/Interval History
-
Date of Service: June 23, 2024
feeling lot better
no tremors
tolerating diet
no nausea or vomiting or diarrhea
Objective Data
-
Labs:
Laboratory Results
06/23/24
04:02
WBC 16.2 H
Hgb 12.3 L
Hct 35.2 L
Plt Count 407 H
Sodium 142
Potassium 3.8
Chloride 103
Carbon Dioxide 26
BUN 10
Creatinine 0.9
Glucose 102 H
Calcium 9.6
Vital Signs:
Vital Signs
Temp Pulse Resp BP Pulse Ox
98.8 F 96 24 157/92 98
06/23/24 11:51 06/23/24 12:07 06/23/24 12:07 06/23/24 12:07 06/23/24 12:07
I&O
06/22/24 06/23/24 06/24/24
06:59 06:59 06:59
Intake Total 3118.4 / 3211.6 2343.0 / 2343.0 360 / 360
Output Total 425 / 425 1225 / 1225 200 / 200
Balance 2693.4 / 2786.6 1118.0 / 1118.0 160 / 160
--- NOTE | 2024-06-23 12:47 | W.DCSUMMARY ---
Discharge Summary
Discharge Data
Date of Admission: 06/21/24
Date of Discharge: 06/23/24
-
Pending Results: No
Hospital Course
34 male from correctional facility History of polysubstance abuse IV drug use. Poor historian, patient reports IVDU with fentanyl and xylazine a few days ago, shooting into his left arm and neck. Tremulous, tachy, tachypneic, anxious reports
nausea vomiting general malaise and pain. Though afebrile, tachycardia, leukocytosis, and tachypnea concerning for sepsis especially in lieu of recent IV drug use and history on admission noted. Patient was admitted to IMU and eventually upgraded
to ICU due to altered mental status and lethargy and concern for intubation for airway protection. Health Worker was consulted. Patient underwent CT chest which was negative for pulmonary embolism. Chest x-ray appreciated possible bronchitis
bronchiolitis. Also with leukocytosis initially was started on broad-spectrum antibiotics. Infectious disease was consulted. Patient blood cultures were negative. Patient was taken off antibiotics. Patient lactic acidosis resolved with IV
fluids. Patient was started on COWS protocol and MSAS protocol. Phenobarbital protocol was also started as concern for suspected benzodiazepine and alcohol withdrawal. Subutex was continued. He was confirmed the patient takes 16 mg Subutex as
outpatient per PDMP. Patient also takes gabapentin 300 mg 3 times daily which was continued on discharge. Patient was also started on BuSpar 10 mg twice daily. Patient symptoms improved. Tachycardia improved. Patient was tolerating diet.
Patient without nausea vomiting diarrhea and no tremors. Patient was talking in complete sentences. Patient was stable on room air. Discussed with car painter. Plan will be to discontinue phenobarbital and clonidine and Ativan. Start BuSpar.
Vital signs were stable. Patient be discharged back to custodial.
Discharge Plan
-
Patient Disposition: [facility]
Discharge Diagnosis/Procedures: Nausea and vomiting and tremors due to drug withdrawal from heroin and possible benzodiazepine
Sinus tachycardia
Suspected alcohol withdrawal
Leukocytosis
Hypernatremia secondary to poor intake
Hyperglycemia
Lactic acidosis
Condition: Fair
Diet: As tolerated
Activity: No restrictions
Driving Restrictions: No driving
Referrals:
[facility] [Family Provider] -
Prescriptions:
New
buspirone 10 mg Tablet
10 mg PO BID 30 Days Qty: 60 0RF
gabapentin 300 mg capsule
300 mg PO TID 30 Days Qty: 90 0RF
Continued
buprenorphine-naloxone [Suboxone] 8-2 mg Film
2 film BUCCAL DAILY
Discontinued
gabapentin 800 mg Tablet
300 mg PO TID
Discharge Orders:
Discharge Patient (As Directed); Ordered 06/23/24
Ordered By: Bennett Santana
Discharge Date and Time
Discharge Date/Time: 06/23/24 14:58
Print Language: FILIPINO
--- NOTE | 2024-06-23 13:25 | PTCARENOTE ---
Received further orders to discharge patient back to [facility]. Report given to Cathleen @ [facility]. [facility] of care/discharge packet/med list given to guards. L midline removed, pressure held and clean dressing applied.
Guards to transport patient back to [facility].
--- NOTE | 2024-06-24 11:43 | PN.CDI ---
CDI
- -
CDI:
Physician Documentation Request
Admit Date: 06/21/24 09:41
Dear Doctor Max,
Patient admitted for withdrawal.
06/21 PCN: 'pt continues on HFNC 60 L and 100%...he is very diaphoretic , facial flushing , he also is mouth breathing and occasional needs a NBRM to keep sat up'
06/21 PCN: 'currently on HFNC at 75% and 60LPM with SpO2 97-99%'
06/23 Hospitalist PN: 'IMU admit transferred to ICU d/t AMS lethargy high oxygen requirement at increased risk need for intubation and stable on room air.'
Selected Entries
06/21/24
11:53 06/21/24
16:19 06/22/24
00:00
Nasal Cannula flow liters per minute 50 50 50
Clarify which of the following accurately represents the patient's respiratory status:
Acute hypoxic respiratory failure, resolved
Hypoxia
Other
Additional information for Respiratory Failure:
Recognized criteria for Respiratory Failure (Source: [facility] Hospitalist Aug 2013)
ABGs: (1 or more) Symptoms Please indicate type if known
1. p)2 <60 or RA SPO2 <91% on RA 1. Tachypnea, SOB, dyspnea Hypoxic
2. pCO2 50 and pH <7.35 2. Use of accessory muscles Hypercapnic
3. pO2 decrease of pCO2 increase by 3. Pallor or cyanosis Hypoxic and Hypercapnic
10 mmHg from baseline if known 4. Anxiety or restlessness Unable to determine
5. Unable to speak in full sentences
Supplemental O2 of > 40% (5LPM) Intubation is not required
Use of terms such as suspected, likely, concern for, or probable (associated with a specific diagnosis that is being evaluated, monitored, or treated as if it exists) are acceptable and can be coded in the inpatient setting, when documented at the
time of discharge.
Thank you,
Leidy Little RN, BSN
CDI Specialist
Available via [place] text
Please use your independent medical judgment in providing your response.
[2024-06-24 12:13] LABS: HIV Combo Negative (Negative)
== END 2024-06-23 14:58 | DRG 871 ==
LOC: ICU 09:41
PROVIDERS: ADMITTING PHYSICIAN Internal Medicine; ATTENDING PHYSICIAN Hospitalist; CONSULT PHYSICIAN Internal Medicine Critical Care Medicine; CONSULT PHYSICIAN Internal Medicine Infectious Disease; EMERGENCY PHYSICIAN Emergency Medicine
PROC: 5A0935A Assistance with Respiratory Ventilation, Less than 24 Consecutive Hours, High Flow/Velocity Cannula (ICD-10-PCS; 2024-06-21)
DX: A41.9 Sepsis, unspecified organism (principal); J96.01 Acute respiratory failure with hypoxia; F11.23 Opioid dependence with withdrawal; E87.1 Hypo-osmolality and hyponatremia; E87.0 Hyperosmolality and hypernatremia; E87.4 Mixed disorder of acid-base balance; F13.239 Sedative, hypnotic or anxiolytic dependence with withdrawal, unspecified; J21.9 Acute bronchiolitis, unspecified; F10.139 Alcohol abuse with withdrawal, unspecified; E83.52 Hypercalcemia; J40 Bronchitis, not specified as acute or chronic; D75.839 Thrombocytosis, unspecified; F17.200 Nicotine dependence, unspecified, uncomplicated; R73.9 Hyperglycemia, unspecified; R94.31 Abnormal electrocardiogram [ECG] [EKG]; R03.0 Elevated blood-pressure reading, without diagnosis of hypertension; Z79.899 Other long term (current) drug therapy; Z86.14 Personal history of Methicillin resistant Staphylococcus aureus infection; Z86.61 Personal history of infections of the central nervous system; Z86.79 Personal history of other diseases of the circulatory system; Z87.01 Personal history of pneumonia (recurrent); Z87.19 Personal history of other diseases of the digestive system
CPT/HCPCS: 36600; 71045; 71275; 80048; 80053; 80202; 80306; 80307; 81003; 81015; 82550; 82805; 82962; 83605; 83735; 84100; 85025; 85027; 85610; 87040; 87070; 87389; 93005; 93306; 93970; 96374; 96375; 96376; 99291; 99406; Q9967